=== PATIENT | male | born 1990 | race Caucasian/White ===

== ENCOUNTER 2016-09-11 01:41 | Emergency (ER) | payer SELFPAY | END 2016-09-11 02:28 | disposition home or self-care (01) | LOC: FER 01:41 | DX: J00 Acute nasopharyngitis [common cold] (principal); F17.210 Nicotine dependence, cigarettes, uncomplicated | CPT/HCPCS: 87450; 87804; 87899; 99283 ==

== ENCOUNTER 2020-08-16 07:58 | Emergency (ER) | payer OTHER ==
[~2020-08-16 07:58] MED LIST: ACYCLOVIR400 MG PO; ZOVIRAX800 MG PO
[2020-08-16] MEDS ORDERED: ZOVIRAX800 MG PO (09:46)
== END 2020-08-16 09:50 | disposition home or self-care (01) ==
LOC: FER 07:58
DX: S90.211A Contusion of right great toe with damage to nail, initial encounter (principal); A60.00 Herpesviral infection of urogenital system, unspecified; W20.8XXA Other cause of strike by thrown, projected or falling object, initial encounter; Y92.89 Other specified places as the place of occurrence of the external cause; Y99.0 Civilian activity done for income or pay
CPT/HCPCS: 73660

== ENCOUNTER 2020-09-05 13:15 | Emergency (ER) | payer OTHER ==
[2020-09-05] MEDS ORDERED: CYCLOBENZAPRINE10 MG PO (14:44)
[2020-09-05] MEDS ORDERED: MEDROL 4MG DOSEP4 MG PO (14:44)
== END 2020-09-05 15:20 | disposition home or self-care (01) ==
LOC: FER 13:15
DX: S29.012A Strain of muscle and tendon of back wall of thorax, initial encounter (principal); X58.XXXA Exposure to other specified factors, initial encounter
CPT/HCPCS: 96372; J1100; J1885

== ENCOUNTER 2021-07-01 14:45 | Emergency (ER) | payer SELFPAY ==
[~2021-07-01 14:45] MED LIST changes: +CYCLOBENZAPRINE10 MG PO; +MEDROL 4MG DOSEP4 MG PO
[2021-07-01] MEDS ORDERED: ZOVIRAX800 MG PO (16:00)
== END 2021-07-01 16:05 | disposition home or self-care (01) ==
LOC: FER 14:45
DX: B00.9 Herpesviral infection, unspecified (principal); F17.290 Nicotine dependence, other tobacco product, uncomplicated; Z76.0 Encounter for issue of repeat prescription
CPT/HCPCS: 99283